=== PATIENT | female | born 1995 | race Caucasian/White ===

== ENCOUNTER 2018-01-02 13:34 | Emergency (ER) | payer BC ==
[2018-01-02 13:51] VITALS: BMI 32.5
--- NOTE | 2018-01-02 14:33 | PDOC ---
History of Present Illness - General Chief Complaint: Nausea/Vomiting Stated Complaint: NAUSEA/VOMITING Time Seen by Provider: 01/02/18 14:30 - History of Present Illness Initial Comments: 01/02/18 15:14 22 yo F w no significant pmh is here with 3 days of nausea and vomiting, NB/NB, subjective fever and mild dull RLQ abd pain 2/10 with no radiation. She has not been able to eat a full meal since Thursday. last bowel movement this morning. Denies diarrhea or constipation. She is currently on her period, which began on Thursday as well. She has a hx of chlamydia at age 18. She denies any recent travel, headache, swelling, rash, chest pain, SOB, joint pain, or recent infections 01/02/18 15:23 Past History - Past Medical History Allergies/Adverse Reactions: Allergies Allergy/AdvReac Type Severity Reaction Status Date / Time No Known Allergies Allergy Verified 01/02/18 13:43 Home Medications: Ambulatory Orders Metoclopramide HCl [Reglan] 5 mg PO PRN #20 tablet 01/02/18 COPD: No - Suicide/Smoking/Psychosocial Hx Smoking History: Never smoked Have you smoked in the past 12 months: No Information on smoking cessation initiated: No Hx Alcohol Use: No Drug/Substance Use Hx: No Substance Use Type: None Review of Systems - Review of Systems Comments:: 01/02/18 15:30 CONSTITUTIONAL: Positive: fever, loss of appetite Absent: chills, diaphoresis, generalized weakness, malaise HEENT: Absent: rhinorrhea, nasal congestion, throat pain, throat swelling, difficulty swallowing, mouth swelling, ear pain, eye pain, visual Changes CARDIOVASCULAR: Absent: chest pain, syncope, palpitations, irregular heart rate, lightheadedness , peripheral edema RESPIRATORY: Absent: cough, shortness of breath, dyspnea with exertion, orthopnea, wheezing, stridor, hemoptysis GASTROINTESTINAL: Positive: RLQ abd pain, nausea, vomiting Absent: abdominal distension, diarrhea, constipation, melena, hematochezia GENITOURINARY: Positive: Currently on period Absent: dysuria, frequency, urgency, hesitancy, flank pain, genital pain MUSCULOSKELETAL: Absent: myalgia, arthralgia, joint swelling SKIN: Absent: rash, itching, pallor HEMATOLOGIC/IMMUNOLOGIC: Absent: easy bleeding, easy bruising, lymphadenopathy, frequent infections ENDOCRINE: Absent: unexplained weight gain, unexplained weight loss, heat intolerance, cold intolerance NEUROLOGIC: Absent: headache, focal weakness or paresthesias, dizziness, unsteady gait, seizure, mental status changes, bladder or bowel incontinence PSYCHIATRIC: Absent: anxiety, depression, suicidal or homicidal ideation, hallucinations. *Physical Exam - Vital Signs Last Vital Signs Temp Pulse Resp BP Pulse Ox 98.4 F 84 17 152/80 100 01/02/18 13:39 01/02/18 13:39 01/02/18 13:39 01/02/18 13:39 01/02/18 13:39 - Physical Exam Comments: 01/02/18 15:32 ABDOMINAL: Mild TTP in the RLQ. Negative rovsig. Negative psoas, negative obturator. Abdomen is soft, non-tender. Non-distended. No rebound or guarding. No organomegaly. Normoactive bowel sounds. GENERAL: Well developed, well nourished. Awake and alert. No acute distress. HEENT: Normocephalic, atraumatic. PERRLA, EOMI. No conjunctival pallor. Sclera are non- icteric. Moist mucous membranes. Oropharynx is clear. NECK: Supple. Full ROM. No JVD. Carotid pulses 2+ and symmetric, without bruits. No thyromegaly. No lymphadenopathy. CARDIOVASCULAR: Regular rate and rhythm. No murmurs, rubs, or gallops. Distal pulses are 2+ and symmetric. PULMONARY: No evidence of respiratory distress. Lungs clear to auscultation bilaterally. No wheezing, rales or rhonchi. MUSCULOSKELETAL Normal range of motion at all joints. No bony deformities or tenderness. No CVA tenderness. EXTREMITIES: No cyanosis. No clubbing. No edema. No calf tenderness. SKIN: Warm and dry. Normal capillary refill. No rashes. No jaundice. NEUROLOGICAL: Alert, awake, appropriate. Cranial nerves 2-12 intact. No deficits to light touch and temperature in face, upper extremities and lower extremities. No motor deficits in the in face, upper extremities and lower extremities. Normoreflexic in the upper and lower extremities. Normal speech. Toes are down-going bilaterally. Gait is normal without ataxia. PSYCHIATRIC: Cooperative. Good eye contact. Appropriate mood and affect. 01/02/18 15:34 ED Treatment Course - LABORATORY CBC & Chemistry Diagram: 01/02/18 15:30 01/02/18 15:30 Medical Decision Making - Medical Decision Making 01/02/18 15:35 22 yo F no sig pmh is here w 3 days of Nausea, vomiting (nb/nb), anorexia, mild RLQ pain and subjective fever. She looks very good, is smiling, and walking around the room with no discomfort. She is not currently in any pain. Plan: cbc, cmp, hcg, saline, zofran, re-assess. Patient felt better after reglan. PO challenge successful. Explained to patient how appendicitis can present and urged her to come back to the ER if she develops any concerning symptoms including abdominal pain, fever, or nausea/vomiting. DCing patient and having her follow up at resident clinic. 01/02/18 15:40 01/02/18 17:38 01/02/18 18:05 *DC/Admit/Observation/Transfer Diagnosis at time of Disposition: Nausea & vomiting - Discharge Dispostion Disposition: HOME Condition at time of disposition: Improved Decision to Admit order: No - Prescriptions Prescriptions: Metoclopramide HCl [Reglan] 5 mg PO PRN #20 tablet - Referrals Referrals: [facility] [Provider Group] - Patient Instructions Printed Discharge Instructions: DI for Nausea -- Adult, DI for Vomiting -- Adult, Appendicitis Additional Instructions: Please make sure to schedule an appt at the resident clinic we are refering you to in the next 2 to 4 days to follow up and make sure you are getting better. Make sure to come back to the emergency room if your nausea and vomiting get worse, if your belly pain gets worse, if you develop a fever or if you have any other concerning symptoms. Please make sure to read the attached appendicitis instructions so you know what symptoms to look out for. - Post Discharge Activity
[2018-01-02] MEDS ORDERED: SODIUM CHLORIDE 0.9% 500 ML INFUS.BAG IV ONE (15:06)
[2018-01-02] MEDS ORDERED: ONDANSETRON 4 MG/2 ML VIAL IVPUSH ONE (15:07)
--- NOTE | 2018-01-02 15:19 | PDOC ---
Attending Attestation - Resident Resident Name: Domingo Salinas - ED Attending Attestation I have performed the following: I have examined & evaluated the patient, The case was reviewed & discussed with the resident, I agree w/resident's findings & plan, Exceptions are as noted - HPI HPI: 01/02/18 15:17 22y F no pmhx presenst with complaint of approx 1 week days of nausea, and 3 days of vomiting and intermittent abd pain in the RLQ that is crampy in nature. pt notes she is having her period currently. Notes subjective fevers a few days ago, but non since. deneis any chills, sob, cough, back pain, dysuria, frequency , polyuria, diarrhea, bpr, melena. GENERAL: The patient is awake, alert, and fully oriented, Nontoxic - in no acute distress. HEAD: Normocephalic, atraumatic. EYES: extraocular movements intact, sclera anicteric, conjunctiva clear. ENT: Normal voice, Moist mucous membranes. NECK: Normal range of motion, supple LUNGS: Breath sounds equal, clear to auscultation bilaterally. No wheezes, no rhonchi, no rales. HEART: Regular rate and rhythm, normal S1 and S2 without murmur, rub or gallop. ABDOMEN: Soft, nontender, No guarding, no rebound. No CVA tenderness EXTREMITIES: Normal range of motion, no edema. NEUROLOGICAL: No facial assymetry, Normal speech, PSYCH: Normal mood, normal affect. SKIN: Warm, Dry, normal turgor, Suspect viral enteritis, will obtain blood work to rule out sure metabolic derangements, hyperglycemia, , UTI . fluids for hydation zofran for sypmtmoatic relief - Physicial Exam PE: 01/03/18 09:26 see aove - Medical Decision Making 01/02/18 19:54 pt feeling improved at discharge able to tolerate oral intake abd soft nontender on reassessment, no signs of localized peritonitis will dc wiht pm dfu antiemetic at home prn return precaution swere discussed for worsening pain, inability to tolerate oral intake
[2018-01-02] MEDS ORDERED: ONDANSETRON 4 MG/2 ML VIAL ONE (15:23)
[2018-01-02 15:57] LABS: BASO % 0.6 % (0-2.0); EOS % 0.7 % (0-4.5); HEMOGLOBIN 13.7 GM/dL (10.7-15.3); LYMPH % 21.6 % (8-40); MCH 30.3 pg (25.7-33.7); MCHC 34.3 g/dl (32.0-36.0); MEAN CELL VOLUME 88.4 fl (80-96); MEAN PLT VOLUME 8.3 fl (7.5-11.1); MONO % 7.7 % (3.8-10.2); NEUT % 69.4 % (42.8-82.8); PLATELET COUNT 304 K/MM3 (134-434); RBC 4.53 M/mm3 (3.60-5.2); RDW 12.7 % (11.6-15.6); WHITE BLOOD COUNT 9.5 K/mm3 (4.0-10.0)
[2018-01-02 16:18] LABS: ALBUMIN 3.9 g/dl (3.4-5.0); ALK PHOS 80 U/L (45-117); ANION GAP 7 (8-16); BILIRUBIN,TOTAL 0.5 mg/dL (0.2-1.0); BLOOD UREA NITROGEN 12 mg/dL (7-18); CALCIUM 9.3 mg/dL (8.5-10.1); CHLORIDE 108 mmol/L (98-107); CO2 28 mmol/L (21-32); CREATININE 0.7 mg/dL (0.55-1.02); GLUCOSE,RANDOM 88 mg/dL (74-106); LIPASE 55 U/L (73-393); POTASSIUM 3.7 mmol/L (3.5-5.1); SGOT/AST 16 U/L (15-37); SGPT/ALT 19 U/L (12-78); SODIUM 143 mmol/L (136-145); TOT PROT 7.4 g/dl (6.4-8.2)
[2018-01-02] MEDS ORDERED: METOCLOPRAMIDE HCL INJECTION 10 MG/2 ML VIAL IVPUSH ONE (16:23)
[2018-01-02] MEDS ORDERED: METOCLOPRAMIDE HCL INJECTION 10 MG/2 ML VIAL ONE (16:42)
[2018-01-02 16:46] LABS: URINE APPEARANCE CLEAR; URINE BILIRUBIN NEGATIVE (<2.0 mg/dL); URINE COLOR YELLOW; URINE GLUCOSE (UA) NEGATIVE (NEGATIVE); URINE KETONE NEGATIVE (NEGATIVE); URINE LEUK ESTERASE NEGATIVE (NEGATIVE); URINE NITRITE NEGATIVE (NEGATIVE); URINE PROTEIN 1+ (NEGATIVE); URINE UROBILINOGEN 4.0 E.U/dl mg/dL (0.2-1.0)
[2018-01-02 16:50] LABS: EPI CELLS RARE /HPF (FEW); URINE MUCUS MODERATE
[2018-01-02 18:09] VITALS: BP 143/83; PULSE 62
[2018-01-02 18:11] VITALS: TEMP 98.3
== END 2018-01-02 18:26 | disposition home or self-care (01) ==
LOC: JER 13:34
PROC: 3E033GC Introduction of Other Therapeutic Substance into Peripheral Vein, Percutaneous Approach (ICD-10-PCS; principal; 2018-01-02)
PROC: 3E033GC Introduction of Other Therapeutic Substance into Peripheral Vein, Percutaneous Approach (ICD-10-PCS; 2018-01-02)
DX: R11.2 Nausea with vomiting, unspecified (principal)
CPT/HCPCS: 36415; 80053; 81003; 81015; 83690; 84703; 85025; 99284-25

== ENCOUNTER 2020-02-18 11:57 | Emergency (ER) | payer BC ==
[2020-02-18 12:20] VITALS: BMI 35.4
--- NOTE | 2020-02-18 12:25 | PDOC ---
History of Present Illness - History of Present Illness Initial Comments: HPI Pt is a 24yo F who presents with 2 day hx of worsening nausea and vomiting. States that she has been nauseous for the entirety of her . Reports occasional streaks of blood in her emesis for 2 months. Reports prior episodes of nausea and emesis mostly associated with meals. Reports over the past two da ys, she has had 15-20 episodes of emesis, not associated with meals, with increasing quantities of blood streaks. Reports associated fast heart rate, burning sensation in epigastrum and throat, and lower abdominal cramping without vaginal discharge or bleeding. OB: Coccucci PMH: denies Meds: denies Allergies: NKDA Social: denies tobacco, etoh, and illicit drug use Review of Systems CONSTITUTIONAL: reports chills;denies fever, diaphoresis, generalized weakness, malaise, loss of appetite HEENT:denies rhinorrhea, nasal congestion, sore throat CARDIOVASCULAR:reports fast heart beat, lightheadedness; denies chest pain, syncope, irregular heart rate, peripheral edema RESPIRATORY:denies cough, shortness of breath, wheezing, hemoptysis GASTROINTESTINAL: reports abdominal pain, nausea, vomiting; denies diarrhea, constipation, melena, hematochezia GENITOURINARY:denies dysuria, frequency, urgency, hematuria, flank pain MUSCULOSKELETAL:reports chronic back pain HEMATOLOGIC/IMMUNOLOGIC:denies easy bleeding, easy bruising ENDOCRINE: denies unexplained weight gain, unexplained weight loss NEUROLOGIC:reports headache; denies loss of consciousness, focal weakness or paresthesias, dizziness, unsteady gait, mental status changes, bladder or bowel incontinence SKIN:denies rash, itching, pallor Physical Exam General: awake, alert, fully oriented, in no acute distress, well developed, well nourished Head: normocephalic, atraumatic Eyes: PERRL, anicteric sclera, conjunctiva clear ENT: hearing grossly normal, oropharynx clear without exudates, no nasal congestion, dry mucous membranes; emesis bag with mucous/brownish appearing liquid mixed with scant traces of blood; nonbilious, no coffee ground emesis Neck: supple, normal ROM, no LAD, JVD or masses Lung: equal breath sounds b/l, CTA b/l, no crackles, wheezes; no distress, speaks full sentences Heart: tachycardic, normal S1, S2, no murmurs appreciated Abdomen: soft, non tender, normoactive bowel sounds, no CVA tenderness Extremities: no edema, no erythema or tenderness, radial/PT pulses 2+ and symmetric Neuro: CN2-12 grossly intact, moves all extremities, normal speech, normal gait, sensation intact Skin: warm, dry, no rashes or lesions noted, normal turgor MDM Pt is a 24yo F who presents with 2 day hx of worsening nausea and vomiting. Initial vitals notable for hypertension, tachycardia; repeat vitals - normotensive, continues to be tachycardic DDx including but not limited to: dimas babcock tear, gastritis, less likely Boerhaave (no gross hematemesis) Workup: labs, ekg [place]: reglan, d5NS, pepcid, maalox EKG: sinus tachycardia, HR bpm, MT ms, QRS ms, QTc ms, TWI in III, AVR, AVF Disposition: 02/18/20 13:35 Labs: leukocytosis, no anemia, electrolytes WNL, LFTs WNL 02/18/20 14:31 UA Reassessed vital signs - tachycardia improved to 90s 02/18/20 14:35 02/18/20 14:36 <Monica Da Silva - Last Filed: 02/18/20 15:55> <Ingrid Richardson - Last Filed: 02/21/20 10:17> - General Chief Complaint: Nausea/Vomiting Stated Complaint: VOMITING/26 WKS Time Seen by Provider: 02/18/20 12:24 Past History - Medical History COPD: No - Reproductive History Is Patient Now?: Yes - Psycho-Social/Smoking History Smoking History: Never smoked Have you smoked in the past 12 months: No - Substance Abuse Hx (Audit-C & DAST Scrn) How often the patient has a drink containing alcohol: Never Score: In Men: 4 or > Positive; In Women: 3 or > Positive: 0 Screen Result (Pos requires Nsg. Audit-10AR): Negative In the last yr the pt used illegal drug/Rx for NonMed reason: No Score: Yes response is considered Positive: 0 Screen Result (Positive result requires Nsg. DAST-10): Negative <Monica Da Silva - Last Filed: 02/18/20 15:55> <Ingrid Richardson - Last Filed: 02/21/20 10:17> - Medical History Allergies/Adverse Reactions: Allergies Allergy/AdvReac Type Severity Reaction Status Date / Time No Known Allergies Allergy Verified 02/20/20 06:50 Home Medications: Ambulatory Orders Metoclopramide HCl [Reglan] 10 mg PO TID PRN #12 tablet 01/02/18 Cephalexin Monohydrate [Keflex -] 500 mg PO Q8H #21 capsule 02/18/20 Metoclopramide HCl [Reglan -] 10 mg PO TID #12 tablet 02/18/20 Acetaminophen [Tylenol] 650 mg PO Q6H #30 capsule 02/20/20 Acetaminophen [Tylenol] 650 mg PO Q6H #30 tablet 02/20/20 Ondansetron HCl [Zofran] 4 mg PO Q8H #10 tablet 02/20/20 Ondansetron [Zofran -] 4 mg PO Q8H #15 tablet 02/20/20 *Physical Exam - Vital Signs Last Vital Signs Temp Pulse Resp BP Pulse Ox 98.9 F 130 H 18 141/104 H 100 02/18/20 12:15 02/18/20 12:15 02/18/20 12:15 02/18/20 12:15 02/18/20 12:15 <Monica Da Silva - Last Filed: 02/18/20 15:55> - Vital Signs Last Vital Signs Temp Pulse Resp BP Pulse Ox 98.2 F 104 H 18 122/81 100 02/18/20 15:27 02/18/20 16:13 02/18/20 16:13 02/18/20 16:13 02/18/20 14:30 <Ingrid Richardson - Last Filed: 02/21/20 10:17> ED Treatment Course - LABORATORY CBC & Chemistry Diagram: 02/18/20 12:40 02/18/20 12:40 <Monica Da Silva - Last Filed: 02/18/20 15:55> - LABORATORY CBC & Chemistry Diagram: 02/18/20 12:40 02/18/20 12:40 - ADDITIONAL ORDERS Additional order review: 02/18/20 13:41 Urine Culture - Final Urine - Urine Clean Catch Escherichia Coli Staphylococcus Epidermidis 02/18/20 12:40 RBC 4.23 MCV 89.2 MCHC 34.9 RDW 12.8 MPV 8.8 Neutrophils % 88.7 H D Lymphocytes % 7.1 L D Monocytes % 4.0 Eosinophils % 0.0 D Basophils % 0.2 - Medications Given in the ED: ED Medications Discontinued Medications Generic Name Dose Route Start Last Admin Trade Name Austin PRN Reason Stop Dose Admin Al Hydroxide/Mg Hydroxide 30 ml 02/18/20 13:01 02/18/20 13:06 Mylanta Oral Suspension - PO 02/18/20 13:02 30 ml ONCE ONE Administration Cephalexin HCl 500 mg 02/18/20 14:29 02/18/20 14:53 Keflex - PO 02/18/20 14:30 500 mg ONCE ONE Administration Dextrose/Sodium Chloride 1,000 mls @ 1,000 mls/hr 02/18/20 12:56 02/18/20 13: 24 D5-Ns - IV 02/18/20 13:55 1,000 mls/hr ONCE ONE Administration Famotidine/Sodium Chloride 20 mg in 50 mls @ 100 mls/hr 02/18/20 13:01 02/18/20 13:06 Pepcid 20 Mg Premixed Ivpb - IVPB 02/18/20 13:30 100 mls/hr ONCE ONE Administration Metoclopramide HCl 10 mg 02/18/20 12:54 02/18/20 13:01 Reglan Injection - IVPB 02/18/20 12:55 10 mg ONCE ONE Administration <Ingrid Richardson - Last Filed: 02/21/20 10:17> Discharge - Discharge Information Problems reviewed: Yes - Admission No <Monica Da Silva - Last Filed: 02/18/20 15:55> <Ingrid Richardson - Last Filed: 02/21/20 10:17> - Discharge Information Clinical Impression/Diagnosis: Nausea & vomiting Qualifiers: Vomiting type: unspecified Vomiting Intractability: non-intractable Qualified Code(s): R11.2 - Nausea with vomiting, unspecified UTI (urinary tract infection) during Qualifiers: Trimester: second trimester Qualified Code(s): O23.42 - Unspecified infection of urinary tract in , second trimester Condition: Stable Disposition: HOME - Additional Discharge Information Goals: Discharge to home with instructions. Stay well hydrated Follow up with your care provider as scheduled Return to the hospital with : regular contractions bleeding ruptured membranes decreased movement Prescriptions: Cephalexin Monohydrate [Keflex -] 500 mg PO Q8H #21 capsule Metoclopramide HCl [Reglan -] 10 mg PO TID #12 tablet - Follow up/Referral Referrals: Kash Gonzalez MD [Staff Physician] - - Patient Discharge Instructions Patient Printed Discharge Instructions: DI for Urinary Tract Infection (UTI), DI for Vomiting -- Adult Additional Instructions: You came into the ER nausea and vomiting. In the ED, you were evaluated with blood work and urinalysis. Your results indicate that you have a urine infection. You do not appear to be an acute need for immediate hospitalization You were advised to follow up with your OBGYN within 1 week. You were given a prescription for Reglan for your nausea. You can take one tablet up to three times a day. You were given a prescription for Keflex for your urine infection. Take this 3 times a day for 7 days. Come back to the ER immediately with any new or worsening concerns, such as blood in your urine, persistent and severe vomiting, or high fevers. Thank you for coming to the [facility]. We hope you feel better soon!
[2020-02-18] MEDS ORDERED: METOCLOPRAMIDE HCL INJECTION 10 MG/2 ML VIAL IVPB ONE (12:54)
[2020-02-18] MEDS ORDERED: DEXTROSE 5%-NORMAL SALINE 1,000 ML IV ONE (12:56)
[2020-02-18] MEDS ORDERED: METOCLOPRAMIDE HCL INJECTION 10 MG/2 ML VIAL ONE (13:00)
[2020-02-18] MEDS ORDERED: MAG HYDROX/AL HYDROX/SIMETH 30 ML UNIT-DOSE CUP PO ONE (13:01)
[2020-02-18] MEDS ORDERED: FAMOTIDINE 20 MG/50 ML IVPB 20 MG/50 ML MG IVPB ONE ×2 (13:01→13:07)
--- NOTE | 2020-02-18 13:06 | PDOC ---
Attending Attestation - Resident Resident Name: Monica Da Silva - ED Attending Attestation I have performed the following: I have examined & evaluated the patient, The case was reviewed & discussed with the resident, I agree w/resident's findings & plan - HPI HPI: 02/18/20 13:37 24yo F who presents with 2 day hx of worsening nausea and vomiting. States that she has been nauseous for the entirety of her . Reports occasional streaks of blood in her emesis for 2 months. Reports prior episodes of nausea and emesis mostly associated with meals. Reports over the past two days, she has had 15-20 episodes of emesis, not associated with meals, with increasing quantities of blood streaks. Reports associated fast heart rate, burning sensation in epigastrum and throat, and lower abdominal cramping without vaginal discharge or bleeding. - Physicial Exam PE: 02/18/20 13:05 Agree with the resident's HPI and PE as documented in the electronic medical record. NAD, well appearing, EOMI, PERRL, nl conjunctiva, anicteric; neck supple. lungs clear, RRR, abdomen soft nontender. No rebound, no guarding. Back nontender. JAVIER x4, no focal neuro deficits. No peripheral edema. normal color for ethnicity, WWP. - Medical Decision Making 02/18/20 13:05 Vital Signs Temp Pulse Resp BP Pulse Ox 98.9 F 130 H 18 141/104 H 100 02/18/20 12:15 02/18/20 12:15 02/18/20 12:15 02/18/20 12:15 02/18/20 12:15 vitals reviewed +hypertensive and tachy likely from n/v, dehydration ddx. anemia, electrolyte/metabolic derangements, hyperemesis of most likely dimas babcock tear given her n/v throughout and unlikely clinically to be Boarhaave's will give D5 NS for hydration, reglan, pepcid/GI cocktail and reassess check labs and lytes, UA currently at 26 weeks repeat VS improved after hydration, analgesia 02/18/20 13:38 02/18/20 13:38 02/18/20 14:17 labs and lytes with leukocytosis 18K, however, no e/o sepsis, no fever, nontoxic appearing UA does have +bacteria, wbcs and some blood, given will treat as UTI and f/u urine culture keflex is appropriate and safe for rx reglan hydration, advised on small bites of food. she has [facility] followup in 3 days as outpatient to L&D after medical assessment and stabilization. Heart Score/ECG Review #1 ECG reviewed & interpreted by me at: 13:05 General ECG Interpretation: Sinus Rhythm Compared to previous ECG there are: Previous ECG unavail 02/18/20 14:16 sinus tachycardia at 120 bpm, no interval abnormalities, narrow QRS, ST and T wave segments and morphology normal. Nonspecific T wave abnormalities with TWI in inferior leads III and AVF no ST elevations or depressions. 02/18/20 14:17 Discharge - Discharge Information Problems reviewed: Yes Clinical Impression/Diagnosis: Nausea & vomiting Qualifiers: Vomiting type: unspecified Vomiting Intractability: non-intractable Qualified Code(s): R11.2 - Nausea with vomiting, unspecified UTI (urinary tract infection) during Qualifiers: Trimester: second trimester Qualified Code(s): O23.42 - Unspecified infection of urinary tract in , second trimester Condition: Stable Disposition: HOME - Additional Discharge Information Prescriptions: Cephalexin Monohydrate [Keflex -] 500 mg PO Q8H #21 capsule Metoclopramide HCl [Reglan -] 10 mg PO TID #12 tablet - Follow up/Referral Referrals: Kash Gonzalez MD [Staff Physician] - - Patient Discharge Instructions Patient Printed Discharge Instructions: DI for Urinary Tract Infection (UTI), DI for Vomiting -- Adult Additional Instructions: You came into the ER nausea and vomiting. In the ED, you were evaluated with blood work and urinalysis. Your results indicate that you have a urine infection. You do not appear to be an acute need for immediate hospitalization You were advised to follow up with your OBGYN within 1 week. You were given a prescription for Reglan for your nausea. You can take one tablet up to three times a day. You were given a prescription for Keflex for your urine infection. Take this 3 times a day for 7 days. Come back to the ER immediately with any new or worsening concerns, such as blood in your urine, persistent and severe vomiting, or high fevers. Thank you for coming to the [facility] ER. We hope you feel better soon! - Post Discharge Activity Vital Signs - Vital Signs Vital signs refused: No Pulse Rate: 104 Respiratory Rate: 18 Blood Pressure: 122/81 BP Location: Left Arm Blood Pressure position: Sitting
[2020-02-18] MEDS ORDERED: MAG HYDROX/AL HYDROX/SIMETH 30 ML UNIT-DOSE CUP ONE (13:07)
[2020-02-18 13:20] LABS: BASO % 0.2 % (0-2.0); HEMATOCRIT 37.7 % (32.4-45.2); HEMOGLOBIN 13.2 GM/dL (10.7-15.3); LYMPH % 7.1 % (8-40); MCH 31.2 pg (25.7-33.7); MCHC 34.9 g/dl (32.0-36.0); MEAN CELL VOLUME 89.2 fl (80-96); MEAN PLT VOLUME 8.8 fl (7.5-11.1); NEUT % 88.7 % (42.8-82.8); PLATELET COUNT 348 K/MM3 (134-434); RBC 4.23 M/mm3 (3.60-5.2); RDW 12.8 % (11.6-15.6); WHITE BLOOD COUNT 18.2 K/mm3 (4.0-10.0)
[2020-02-18 13:25] LABS: ALBUMIN 3.8 g/dl (3.4-5.0); BILIRUBIN,TOTAL 0.5 mg/dL (0.2-1); BLOOD UREA NITROGEN 5.7 mg/dL (7-18); CALCIUM 10.1 mg/dL (8.5-10.1); CREATININE 0.6 mg/dL (0.55-1.3); POTASSIUM 3.8 mmol/L (3.5-5.1); TOT PROT 7.8 g/dl (6.4-8.2)
[2020-02-18 14:14] LABS: EPI CELLS >36 /uL (0-25.1); HYALINE CASTS 36 /uL (0-3.1); PH,URINE 5.5 (5.0-8.0); URINE APPEARANCE TURBID; URINE BACTERIA 5997 /uL (0-1359); URINE BILIRUBIN 1+ (NEGATIVE); URINE COLOR DK YELLOW; URINE GLUCOSE (UA) TRACE (NEGATIVE); URINE KETONE 4+ (NEGATIVE); URINE LEUK ESTERASE 1+ (NEGATIVE); URINE NITRITE NEGATIVE (NEGATIVE); URINE PROTEIN 2+ (NEGATIVE); URINE WBC 346 /uL (0-25.8)
[2020-02-18 14:16] LABS: URINE RBC 43.4 /uL (0-23.9)
[2020-02-18] MEDS ORDERED: CEPHALEXIN MONOHYDRATE 500 MG CAPSULE (UD) PO ONE (14:29)
[2020-02-18] MEDS ORDERED: CEPHALEXIN MONOHYDRATE 500 MG CAPSULE (UD) ONE (14:44)
--- NOTE | 2020-02-18 14:56 | EKG ---
Test Reason : Blood Pressure : / mmHG Vent. Rate : 120 BPM Atrial Rate : 120 BPM P-R Int : 156 ms QRS Dur : 074 ms QT Int : 306 ms P-R-T Axes : 060 055 -05 degrees QTc Int : 432 ms SINUS TACHYCARDIA T WAVE ABNORMALITY, CONSIDER INFERIOR ISCHEMIA ABNORMAL ECG NO PREVIOUS ECGS AVAILABLE Confirmed by Yasmani Tanner ([id number]) on 02/18/2020 2:56:11 PM Referred By: Confirmed By:Yasmani Tanner
[2020-02-18 16:42] VITALS: BP 135/65; PULSE 109; TEMP 98.2
--- NOTE | 2020-02-18 17:14 | PD.OB.PROG ---
Past Medical History - Primary Care Physician PCP:: Ethel Baldwin Documenting Provider Type: Laborist - Admission Chief Complaint: Vomiting of a day duration. History of Present Illness: 24 yo , MONSERRAT 05/29/20, EGA 25 weeks 4 days, presented with the above. She was managed at the ED and referred for obstetrical clearance. 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 Weeks Gestation by Dates: 25.4 ...EDC by Dates: 05/29/20 Heme/Onc: Denies/None Infectious Disease: Denies/None Psych: Denies/None Musculoskeletal: Denies/None Rheumatology: Denies/None ENT: Denies/None Endocrine: Denies/None Dermatology: Denies/None - Smoking History Smoking history: Current some day smoker Have you smoked in the past 12 months: Yes Aproximately how many cigarettes per day: 4 - Alcohol/Substance Use Hx Alcohol Use: No History of Substance Use: reports: Marijuana - Social History Usual Living Arrangement: With Significant Other Do you think of yourself as: Straight/Heterosexual History of Recent Travel: No Review of Systems - Review of Systems Constitutional: reports: No Symptoms Eyes: reports: No Symptoms HENT: reports: No Symptoms Neck: reports: No Symptoms Cardiovascular: reports: No Symptoms Respiratory: reports: No Symptoms Gastrointestinal: reports: Vomiting Genitourinary: reports: No Symptoms Breasts: reports: No Symptoms Reported Musculoskeletal: reports: No Symptoms Integumentary: reports: No Symptoms Neurological: reports: No Symptoms Endocrine: reports: No Symptoms Hematology/Lymphatic: reports: No Symptoms Psychiatric: reports: No Symptoms Physical Exam - Obstetrical Vital Signs: Vital Signs Temperature 98.2 F 02/18/20 15:27 Pulse Rate 104 H 02/18/20 16:13 Respiratory Rate 18 02/18/20 16:13 Blood Pressure 122/81 02/18/20 16:13 O2 Sat by Pulse Oximetry (%) 100 02/18/20 14:30 Constitutional: Yes: Well Nourished Eyes: Yes: WNL HENT: Yes: WNL, Tonsillar Exudate Cardiovascular: Yes: WNL - Abdominal Exam/OB Fundal Height: 25 Number of Fetuses: Single Presentation: Vertex Contractions: No Monitor Mode: External Heart Rate (range): 140 Heart Rate Location: [facility] Category: I Accelerations: Uniform Decelerations: None - Vaginal Exam/OB Vaginal Exam Deferred: No Vaginal Bleeding: No Speculum Exam: No Dilatation (cm): 0 Effacement (%): 0 Amniotic Membrane Status: Intact Presentation: Vertex/Position Station: -3 - Physical Exam Musculoskeletal: Yes: WNL Extremities: Yes: WNL Edema: No Integumentary: Yes: WNL ...Motor Strength: WNL Psychiatric: Yes: WNL - Labs Lab Results: CBC, BMP 02/18/20 12:40 02/18/20 12:40 Problem List - Problems (1) 25 weeks gestation of Code(s): Z3A.25 - 25 WEEKS GESTATION OF Assessment/Plan 25 week gestation with vomiting in , managed by ED Not in labor, and problem has resolved. Discharge home today Follow up at clinic on 02/21/20.
== END 2020-02-18 16:55 | disposition home or self-care (01) ==
LOC: JER 11:57
PROC: 3E033GC Introduction of Other Therapeutic Substance into Peripheral Vein, Percutaneous Approach (ICD-10-PCS; principal; 2020-02-18)
DX: O23.42 Unspecified infection of urinary tract in pregnancy, second trimester (principal); R11.2 Nausea with vomiting, unspecified
CPT/HCPCS: 36415; 80053; 81003; 85025; 87086; 87186; 93005; 93010; 99284-25

== ENCOUNTER 2020-02-20 06:45 | Emergency (ER) | payer BC ==
[2020-02-20 06:53] VITALS: BP 130/88; TEMP 98.3; BMI 25.1
[2020-02-20] MEDS ORDERED: SODIUM CHLORIDE 1,000 ML IV STA (07:24)
[2020-02-20] MEDS ORDERED: ONDANSETRON 4 MG/2 ML VIAL IVPUSH ONE ×2 (07:24→08:13)
[2020-02-20] MEDS ORDERED: ACETAMINOPHEN 1000 MG/100 ML VIAL (NON FORMULARY) IVPB ONE (07:48)
--- NOTE | 2020-02-20 07:48 | PDOC ---
History of Present Illness - General Chief Complaint: Nausea/Vomiting Stated Complaint: VOMITING BLOOD Time Seen by Provider: 02/20/20 07:15 History Source: Patient - History of Present Illness Timing/Duration: reports: constant Abdominal Pain Onset Location: reports: epigastric Past History - Medical History Allergies/Adverse Reactions: Allergies Allergy/AdvReac Type Severity Reaction Status Date / Time No Known Allergies Allergy Verified 02/20/20 06:50 Home Medications: Ambulatory Orders Metoclopramide HCl [Reglan] 10 mg PO TID PRN #12 tablet 01/02/18 Cephalexin Monohydrate [Keflex -] 500 mg PO Q8H #21 capsule 02/18/20 Metoclopramide HCl [Reglan -] 10 mg PO TID #12 tablet 02/18/20 Acetaminophen [Tylenol] 650 mg PO Q6H #30 capsule 02/20/20 Acetaminophen [Tylenol] 650 mg PO Q6H #30 tablet 02/20/20 Ondansetron HCl [Zofran] 4 mg PO Q8H #10 tablet 02/20/20 Ondansetron [Zofran -] 4 mg PO Q8H #15 tablet 02/20/20 COPD: No - Reproductive History Is Patient Now?: No - Immunization History Immunization Up to Date: Yes - Psycho-Social/Smoking History Smoking History: Never smoked Have you smoked in the past 12 months: Yes Number of Cigarettes Smoked Daily: 4 Information on smoking cessation initiated: No - Substance Abuse Hx (Audit-C & DAST Scrn) How often the patient has a drink containing alcohol: Never Score: In Men: 4 or > Positive; In Women: 3 or > Positive: 0 Screen Result (Pos requires Nsg. Audit-10AR): Negative In the last yr the pt used illegal drug/Rx for NonMed reason: No Score: Yes response is considered Positive: 0 Screen Result (Positive result requires Nsg. DAST-10): Negative Review of Systems - Review of Systems Constitutional: No: Chills, Fever ABD/GI: Yes: Constipated, Nausea, Vomiting : No: Burning, Dysuria, Flank Pain *Physical Exam - Vital Signs Last Vital Signs Temp Pulse Resp BP Pulse Ox 98.3 F 110 H 20 130/88 100 02/20/20 06:48 02/20/20 06:48 02/20/20 06:48 02/20/20 06:48 02/20/20 06:48 - Physical Exam 02/20/20 07:49 Appears uncomfortable General Appearance: Yes: Appropriately Dressed HEENT: positive: Normal Voice Neck: positive: Supple Respiratory/Chest: negative: Respiratory Distress Gastrointestinal/Abdominal: positive: Soft. negative: Tender Musculoskeletal: negative: CVA Tenderness Integumentary: positive: Dry, Warm Neurologic: positive: Fully Oriented, Alert, Normal Mood/Affect ED Treatment Course - LABORATORY CBC & Chemistry Diagram: 02/20/20 07:31 02/20/20 07:31 Medical Decision Making - Medical Decision Making 02/20/20 07:42 24-year-old female , ~26 weeks by dates here with nausea and vomiting that has persisted throughout her entire . Also w/ occasional streaks of BRB in emesis and intermittent epigastric burning pain. Was seen in ER 2 days ago and had blood work done and discharged with reglan. States symptoms persist despite taking meds and unable to tolerate p.o. Had an appointment with [employer]OR [employer]OY[employer] last week but was unable to make appointment secondary to nausea vomiting. Has upcoming appointment in 2 days. Denies abdominal pain, vaginal bleeding or dysuria. Of note patient was found to have over 5K bacteria in her you urine on last visit and currently on keflex. Urine culture has since come back showing normal edita see exam Hyperemesis 2nd visit for same, not improving w/ reglan at home Tachy to 110 and ketty uncomfortable -IVF -antiemetic -labs -reassess 02/20/20 09:50 WBC 18, similar to results 2 days ago, most likely reflecting leukocytosis of . Rest of labs unremarkable. On reassessment, patient reports feeling significantly better and able to tolerate several glasses of water and ice in ER. Rpt HR 88. Feels well enough to be discharged. Will give small dose of Zofran given pt outside of 1st trimester, and encourage hydration at home. Patient has follow-up with Dr. Gonzalez in 2 days. Discharge - Discharge Information Problems reviewed: Yes Clinical Impression/Diagnosis: Hyperemesis gravidarum Condition: Improved Disposition: HOME - Additional Discharge Information Prescriptions: Acetaminophen [Tylenol] 650 mg PO Q6H #30 capsule Acetaminophen [Tylenol] 650 mg PO Q6H #30 tablet Ondansetron HCl [Zofran] 4 mg PO Q8H #10 tablet Ondansetron [Zofran -] 4 mg PO Q8H #15 tablet - Follow up/Referral - Patient Discharge Instructions Patient Printed Discharge Instructions: DI for Hyperemesis Gravidarum Additional Instructions: Take medications as directed and follow with your [employer] as already scheduled in 2 days - Post Discharge Activity
[2020-02-20] MEDS ORDERED: ACETAMINOPHEN INJECTION 100 ML IVPB ONE (08:11)
[2020-02-20 08:29] LABS: BASO % 0.1 % (0-2.0); HEMATOCRIT 35.8 % (32.4-45.2); HEMOGLOBIN 12.2 GM/dL (10.7-15.3); LYMPH % 8.7 % (8-40); MCH 30.5 pg (25.7-33.7); MCHC 34.2 g/dl (32.0-36.0); MEAN CELL VOLUME 89.3 fl (80-96); MEAN PLT VOLUME 8.7 fl (7.5-11.1); MONO % 4.8 % (3.8-10.2); NEUT % 86.4 % (42.8-82.8); PLATELET COUNT 369 K/MM3 (134-434); RBC 4.01 M/mm3 (3.60-5.2); RDW 12.7 % (11.6-15.6); WHITE BLOOD COUNT 18.5 K/mm3 (4.0-10.0)
[2020-02-20 08:52] LABS: ALBUMIN 3.5 g/dl (3.4-5.0); BILIRUBIN,TOTAL 0.8 mg/dL (0.2-1); BLOOD UREA NITROGEN 8.4 mg/dL (7-18); CALCIUM 9.5 mg/dL (8.5-10.1); CREATININE 0.7 mg/dL (0.55-1.3); POTASSIUM 3.7 mmol/L (3.5-5.1); TOT PROT 7.5 g/dl (6.4-8.2)
[2020-02-20 10:03] VITALS: PULSE 88
== END 2020-02-20 09:55 | disposition home or self-care (01) ==
LOC: JER 06:45
PROC: 3E0333Z Introduction of Anti-inflammatory into Peripheral Vein, Percutaneous Approach (ICD-10-PCS; principal; 2020-02-20)
PROC: 3E033GC Introduction of Other Therapeutic Substance into Peripheral Vein, Percutaneous Approach (ICD-10-PCS; 2020-02-20)
PROC: 3E0337Z Introduction of Electrolytic and Water Balance Substance into Peripheral Vein, Percutaneous Approach (ICD-10-PCS; 2020-02-20)
DX: O21.1 Hyperemesis gravidarum with metabolic disturbance (principal)
CPT/HCPCS: 36415; 80053; 85025; 99284-25; J0131